=== PATIENT | female | born 1965 | race Caucasian/White ===

== ENCOUNTER 2020-12-11 10:23 | Emergency (ER) | payer OTHER ==
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
--- NOTE | 2020-12-11 16:08 | CR ---
Right hand: 4 views of the right hand were obtained. Comparison: No prior hand exam is available. Severe joint space narrowing is seen within the DIP and PIP joints. Moderate joint space narrowing is noted within the MCP joints. Osteopenia is present. Mild degenerative change is noted within the CMC joint of the thumb. No acute fracture or other bony abnormality is appreciated. Impression: 1. Degenerative change and osteopenia. 2. No acute osseous abnormality is appreciated on right hand exam. Diagnostic code #2
== END 2020-12-11 11:50 | disposition home or self-care (01) ==
LOC: JD.ED 10:23
DX: S60.221A Contusion of right hand, initial encounter (principal); E66.9 Obesity, unspecified; Z72.0 Tobacco use; Z68.30 Body mass index [BMI] 30.0-30.9, adult; Z88.0 Allergy status to penicillin; Z88.1 Allergy status to other antibiotic agents; Z91.040 Latex allergy status; W22.8XXA Striking against or struck by other objects, initial encounter; Y93.55 Activity, bike riding
CPT/HCPCS: 73130-26-RT; 73130-RT; 99282; 99283